=== PATIENT | female | born 1950 | race Caucasian/White ===

== ENCOUNTER 2016-06-05 16:23 | Inpatient (IN) | payer OTHER ==
[~2016-06-05] VITALS: Ht 167.6 cm; Wt 70.6 kg
[2016-06-05] VITALS (9 sets, daily range): BP systolic 150–178; BP diastolic 68–96; PULSE 57–76; TEMP 36.5–36.9; O2SAT 91–95; Ht 167.6 cm; Wt 70.6 kg
[~2016-06-05 16:23] MED LIST: ATOR-24 PO; ISOS30TA51 PO; METO25TA56 PO; NTRSL3 UT; PANT40TA PO; PRED1SUS3 OPR
[2016-06-05] MEDS ORDERED: ASPIRIN 81 MG CHEW PO STA (16:39)
--- NOTE | 2016-06-05 16:46 | EMERGENCY ROOM VISIT NOTE ---
History Report prepared by Gurinder: Christine Trejo Under the Supervision of: Dr. Aiden Alfaro M.D. First contact with patient: 16:32 Chief Complaint: CHEST PAIN Stated Complaint: CHEST PAIN,SOB,CHEST HEAVINESS History of Present Illness The patient is a 65 year old female who presents to the Emergency Room with complaints of intermittent chest pressure beginning 4 hours ago. The patient states that she has had heart attack 4 years ago that felt exactly like this. She reports that it feels like an elephant is sitting on her chest. She complains of shortness of breath and chest heaviness. The patient denies any fever, bloody stool, black stool, recent flu-like symptoms, radiation. She states that nothing makes her pain better or worse and she has not changed or started any medication recently. She notes that she has hypertension and is a smoker but does not take Aspirin. The patient rates her pain as an 8/10 in severity. Source of History: patient, family Onset: 4 hours ago Position: chest Symptom Intensity: 8/10 Quality: pressure Timing: intermittent Modifying Factors (Worsening): other (none) Modifying Factors (Relieving): other (none) Associated Symptoms: + SOB, No fevers Note: he patient denies any fever, bloody stool, black stool, recent flu-like symptoms , radiation. Review of Systems See HPI for pertinent positives & negatives. A total of 10 systems reviewed and were otherwise negative. Past Medical & Surgical Medical Problems: (1) Heart attack (2) Hypertension Old medical records were reviewed. Nurse's notes were reviewed and I agree with. She did have a WI in 2010 which was treated medically without a stent. Family History FH: heart disease Social History Smoking Status: Current Every Day Smoker Drug Use: none Marital Status: Housing Status: lives alone Current/Historical Medications Scheduled Atorvastatin (Lipitor), 40 MG PO HS Isosorbide Mononitrate (Isosorbide Mononitrate ER), 15 MG PO BID Metoprolol Tartrate (Lopressor) (Lopressor), 12.5 MG PO BID Scheduled PRN Nitroglycerin (Nitrostat), 0.3 MG UT PRN PRN for CHEST PAIN Allergies Coded Allergies: No Known Allergies (Unverified , 11/14/15) Physical Exam Vital Signs Date Time Temp Pulse Resp B/P Pulse Ox O2 Delivery O2 Flow Rate FiO2 06/05/16 18:12 60 20 148/85 95 06/05/16 17:20 60 148/85 06/05/16 17:13 60 06/05/16 17:01 63 20 193/111 06/05/16 16:54 61 175/102 06/05/16 16:50 Room Air 06/05/16 16:45 70 17 191/94 Room Air 06/05/16 16:26 36.8 69 18 195/106 95 Room Air Physical Exam General: Non ill-appearing older female complaining of chest pain otherwise in no acute distress. HEENT: Normal cephalic atraumatic. Pupils are equal round and reactive to light. Sclerae anicteric. Extraocular movements are intact. Oropharynx is pink with moist mucous membranes. No swelling of the mouth lips or tongue. Neck: Supple with a midline trachea. No meningeal signs or stiffness, no JVD or bruits. No Stridor. Chest: Clear to auscultation bilaterally. No wheezes or rhonchi. No increased work of breathing. Heart: regular rate and rhythm. Abdomen: Soft nontender, nondistended without rebound guarding or rigidity. Extremities: No cyanosis clubbing or edema. No calf tenderness or assymetry Spine/Back. Non tender to palpation. No CVA tenderness Skin: Good turgor without rashes. Neurologic exam: Cranial nerves two through 12 are intact. Motor and sensation are intact and symmetrical throughout. Medical Decision & Procedures ER Provider Diagnostic Interpretation: X-ray results as stated below per interpretation by me and the radiologist: CHEST ONE VIEW PORTABLE No acute infiltrate, failure, or pneumothorax. FINDINGS: The heart is normal in size. There is mild elevation of the interstitium suggesting mild pulmonary vascular congestion. There is no lobar consolidation. There are no pleural effusions.[ IMPRESSION: Mild elevation of the interstitium consistent likely secondary to mild pulmonary vascular congestion. No evidence of focal pulmonary consolidation Electronically signed by: Martin Resendiz M.D. 06/05/2016 4:53 PM Dictated Date/Time: 06/05/2016 4:53 PM Laboratory Results 06/05/16 16:40 Red Blood Count 4.63, Mean Corpuscular Volume 94.4, Mean Corpuscular Hemoglobin 32.2, Mean Corpuscular Hemoglobin Concent 34.1, Mean Platelet Volume 8.8, Neutrophils (%) (Auto) 52.0, Lymphocytes (%) (Auto) 39.3, Monocytes (%) (Auto) 6.1, Eosinophils (%) (Auto) 1.7, Basophils (%) (Auto) 0.6, Neutrophils # (Auto) 6.59, Lymphocytes # (Auto) 4.98, Monocytes # (Auto) 0.77, Eosinophils # (Auto) 0.21, Basophils # (Auto) 0.08 06/05/16 16:40 Test 06/05/16 16:40 06/05/16 16:47 White Blood Count 12.67 K/uL (4.8-10.8) Red Blood Count 4.63 M/uL (4.2-5.4) Hemoglobin 14.9 g/dL (12.0-16.0) Hematocrit 43.7 % (37-47) Mean Corpuscular Volume 94.4 fL (80-100) Mean Corpuscular Hemoglobin 32.2 pg (25-34) Mean Corpuscular Hemoglobin Concent 34.1 g/dl (32-36) Platelet Count 406 K/uL (130-400) Mean Platelet Volume 8.8 fL (7.4-10.4) Neutrophils (%) (Auto) 52.0 % Lymphocytes (%) (Auto) 39.3 % Monocytes (%) (Auto) 6.1 % Eosinophils (%) (Auto) 1.7 % Basophils (%) (Auto) 0.6 % Neutrophils # (Auto) 6.59 K/uL (1.4-6.5) Lymphocytes # (Auto) 4.98 K/uL (1.2-3.4) Monocytes # (Auto) 0.77 K/uL (0.11-0.59) Eosinophils # (Auto) 0.21 K/uL (0-0.5) Basophils # (Auto) 0.08 K/uL (0-0.2) RDW Standard Deviation 48.0 fL (36.4-46.3) RDW Coefficient of Variation 13.9 % (11.5-14.5) Immature Granulocyte % (Auto) 0.3 % Immature Granulocyte # (Auto) 0.04 K/uL (0.00-0.02) Prothrombin Time 10.1 SECONDS (9.0-12.0) Prothromb Time International Ratio 0.9 (0.9-1.1) Activated Partial Thromboplast Time 26.6 SECONDS (21.0-31.0) Partial Thromboplastin Ratio 1.0 Anion Gap 10.0 mmol/L (3-11) Est Creatinine Clear Calc Drug Dose 47.7 ml/min Estimated GFR () 54.9 Estimated GFR (Non- 47.4 BUN/Creatinine Ratio 13.1 (10-20) Calcium Level 8.8 mg/dl (8.5-10.1) Total Bilirubin 0.2 mg/dl (0.2-1) Direct Bilirubin < 0.1 mg/dl (0-0.2) Aspartate Amino Transf (AST/SGOT) 9 U/L (15-37) Alanine Aminotransferase (ALT/SGPT) 11 U/L (12-78) Alkaline Phosphatase 61 U/L (45-117) Total Protein 7.7 gm/dl (6.4-8.2) Albumin 3.9 gm/dl (3.4-5.0) Lipase 131 U/L (73-393) Bedside Troponin I 0.000 ng/ml (0-0.045) Laboratory studies as stated above per my review. Medications Administered Medications (Trade) Dose Ordered Sig/Tiffany Route Start Time Stop Time Status Last Admin Dose Admin Aspirin (Aspirin Chew) 324 mg NOW STAT PO 06/05/16 16:39 06/05/16 16:42 DC 06/05/16 16:46 324 MG Nitroglycerin (Nitrostat Tab) 0.4 mg Q5M PRN SL 06/05/16 16:45 07/05/16 16:44 06/05/16 16:54 0.4 MG ECG Rate (beats per minute): 64 Rhythm: normal sinus Findings: nonspecific-ST abn, other (questionable ST changes between V1-V2, poor R wave progression) Change: EKG #2: Normal Sinus, 61, poor R wave progression, nonspecific ST and T wave abnormalities laterally, no significant change from EKG 1 EKG #3: Sinus bradycardia, 59, t wave inversions anteriorly and laterally, possible ST elevation anteriorly, compared to earlier EKG the T wave inversions are now present. ED Course 1631: Past medical records reviewed. The patient was evaluated in room C4, and a complete history and physical examination were performed. 163: Aspirin Chew 324mg PO. 1645: Nitroglycerin 0.4mg PRN SL chest pain. 1652: I reevaluated the patient. She is feeling much better after 1 nitro and her pain is down to a 1 or 2. 1715: Nitroglycerin 1 inch EXT. 1727: I spoke to Dr. Irving about the patient's case. He is worried about the dynamic changes and suggests calling a heart alert. 1743: I reevaluated the patient. She is feeling a lot better. 1742: Nitroglycerin/Dextrose 2000mcg route. 1800: I reevaluated the patient. She is being evaluated by Dr. Irving and is pain free. 1807: The patient is on her way to the catheterization lab. 1810: I spoke to Dr. Riddle about the patient's case. He will evaluate the patient for further management. 1823: Upon reevaluation, the patient is hemodynamically stable. I discussed the results and treatment plan with the patient. She verbalized agreement of the treatment plan. The patient will be evaluated for further management. Medical Decision Differential diagnoses include acute coronary syndrome, arrhythmia, CHF, GERD, electrolyte or metabolic imbalance. The patient comes in as described above. She has a cardiac history. She had chest pain starting around noon and she had some symptoms off and on for the last couple days or so as well. She appears in no distress but as it an 8/10 chest pressure. She does not take aspirin or chills given aspirin chewable here. IV access was established, EKG, multiple blood tests was obtained. I did give her nitroglycerin 3 and her pain went to 0/10 and she was resting comfortably with this. We applied nitroglycerin paste. Her initial EKG was concerning for possible ST elevation anteriorly versus J-point elevation. She did have some possible depressions laterally as well concerning for reciprocal changes. I did repeat EKG and anterior segments look better. I did call and talk to Dr. Barnes and he felt that given her symptoms and EKG changes that she call heart alert. I did this in the meantime, I got a third EKG and ST segments looked better but now she has T-wave inversions anteriorly. She is pain- free and asymptomatic with 0-10 pain. I do think she needs to go to the [facility] to rule out an acute coronary syndrome/[place]. Dr. Riddle promptly saw her in the ER and is going to take her emergently to the [facility] for further treatment and evaluation and possible angioplasty. The patient was happy with the plan and was sent emergently to the [facility] Consults Time Called: 1720 Consulting Physician: Dr. Irving - Cardiology [facility] Returned Call: [address] Irving about the patient's case. He is worried about the dynamic changes and suggests calling a heart alert. Additional Consults: Time Called: 1805 Consulted Physician: Dr. Riddle Returned Call: 1810 Additional Comments: I spoke to Dr. Riddle about the patient's case. He will evaluate the patient for further management. Impression Primary Impression: Acute myocardial infarction Additional Impression: Substernal chest pain Scribe Attestation The scribe's documentation has been prepared under my direction and personally reviewed by me in its entirety. I confirm that the note above accurately reflects all work, treatment, procedures, and medical decision making performed by me. Departure Information Dispostion Being Evaluated By Hospitalist Easton Gibson M.D. (PCP) Patient Instructions My [facility] Problem Qualifiers
[2016-06-05] MEDS ORDERED: IMDSR30 PO (16:47)
[2016-06-05] MEDS: NITROGLYCERIN 0.4 MG SL PER TAB CHARGE SL PRN ×2 (16:49→16:54)
--- NOTE | 2016-06-05 16:55 | DIAGNOSTIC IMAGING REPORT ---
CHEST ONE VIEW PORTABLE CLINICAL HISTORY: Atypical chest pain COMPARISON STUDY: 05/05/2011 FINDINGS: The heart is normal in size. There is mild elevation of the interstitium suggesting mild pulmonary vascular congestion. There is no lobar consolidation. There are no pleural effusions.[ IMPRESSION: Mild elevation of the interstitium consistent likely secondary to mild pulmonary vascular congestion. No evidence of focal pulmonary consolidation Electronically signed by: Martin Resendiz M.D. 06/05/2016 4:53 PM Dictated Date/Time: 06/05/2016 4:53 PM
[2016-06-05 17:01] LABS: BASO % 0.6 %; BASO ABS # 0.08 K/uL (0-0.2); COMPLETE YES; EOS % 1.7 %; HEMATOCRIT 43.7 % (37-47); IG% 0.3 %; LYMPH % 39.3 %; LYMPH ABS # 4.98 K/uL (1.2-3.4); MEAN CELL VOLUME 94.4 fL (80-100); MEAN CORPUSCULAR HEMOGLOBIN 32.2 pg (25-34); MEAN CORPUSCULAR HGB CONC 34.1 g/dl (32-36); MEAN PLATELET VOLUME 8.8 fL (7.4-10.4); MONO % 6.1 %; PLATELET COUNT 406 K/uL (130-400); RED BLOOD COUNT 4.63 M/uL (4.2-5.4); WHITE BLOOD COUNT 12.67 K/uL (4.8-10.8)
[2016-06-05 17:14] LABS: INR 0.9 (0.9-1.1); PROTHROMBIN TIME (PATIENT) 10.1 SECONDS (9.0-12.0)
[2016-06-05] MEDS ORDERED: NITROGLYCERIN OINT 2% 1GM PACKET EXT ONE (17:15)
[2016-06-05 17:25] LABS: BLOOD UREA NITROGEN 16 mg/dl (7-18); BUN/CREATININE RATIO 13.1 (10-20); CALCIUM 8.8 mg/dl (8.5-10.1); CARBON DIOXIDE 24 mmol/L (21-32); CHLORIDE 108 mmol/L (98-107); GLUCOSE 121 mg/dl (70-99); SODIUM 142 mmol/L (136-145)
[2016-06-05 17:28] LABS: ALKALINE PHOSPHATASE 61 U/L (45-117); ALT/SGPT 11 U/L (12-78); AST/SGOT 9 U/L (15-37)
[2016-06-05] MEDS ORDERED: NiCARDipine HCL INJ 2.5 MG/ML 10 ML AMP ONE (17:42)
[2016-06-05] MEDS ORDERED: HEPARIN SOD (PORCINE) 1000 UNIT/ML 10 ML VIAL ONE (17:43)
[2016-06-05] MEDS ORDERED: NITROGLYCERIN/D5W 100MCG/ML 20ML SYR ONE (17:43)
[2016-06-05] MEDS ORDERED: MIDAZOLAM HCL 1 MG/ML 2ML VIAL ONE (17:43)
[2016-06-05] MEDS ORDERED: FENTANYL CITRATE INJ 50 MCG/1 ML 2 ML VIAL ONE (17:43)
[2016-06-05] MEDS ORDERED: CLOPIDOGREL BISULFATE 300 MG TAB PO ONE (19:03)
--- NOTE | 2016-06-05 19:25 | Procedure Note ---
Pre-Mod Sedation Assessment General Date of Moderate Sedation: Jun 05, 2016. Vital Signs: Vital Signs Past 12 Hours Date Time Temp Pulse Resp B/P Pulse Ox O2 Delivery O2 Flow Rate FiO2 06/05/16 19:15 62 16 156/85 95 Room Air 06/05/16 18:12 60 20 148/85 95 06/05/16 17:20 60 148/85 06/05/16 17:13 60 06/05/16 17:01 63 20 193/111 06/05/16 16:54 61 175/102 06/05/16 16:50 Room Air 06/05/16 16:45 70 17 191/94 Room Air 06/05/16 16:26 36.8 69 18 195/106 95 Room Air Review Cardiovascular: regular rate, rhythm, no edema Abdomen: normal bowel sounds, non tender, soft Lungs: lungs clear, normal breath sounds, no respiratory distress Airway Class: II Pre-Sedation Airway Assessment Oral Cavity: WNL Able to Visualize Vocal Cords: Yes Short Thick Neck: No Hx of Sleep Apnea: No Smoking Status: Former Smoker Mallampati Classification: Class II ASA Classification: Class II Procedure Planning Contraindications-for Mod Sed: None Yes Notes The planned sedation has been discussed with the patient and consent obtained. I have identified the patient, determined the appropriateness of sedation and have assessed the patient immediately prior to the procedure. All medicine(s) and interventions are by my order.
--- NOTE | 2016-06-05 19:26 | Procedure Note ---
Post-Mod Sedation Assessment General Date of Moderate Sedation Jun 05, 2016. Vital Signs: Vital Signs Past 12 Hours Date Time Temp Pulse Resp B/P Pulse Ox O2 Delivery O2 Flow Rate FiO2 06/05/16 19:15 62 16 156/85 95 Room Air 06/05/16 18:12 60 20 148/85 95 06/05/16 17:20 60 148/85 06/05/16 17:13 60 06/05/16 17:01 63 20 193/111 06/05/16 16:54 61 175/102 06/05/16 16:50 Room Air 06/05/16 16:45 70 17 191/94 Room Air 06/05/16 16:26 36.8 69 18 195/106 95 Room Air Review - Discharge Criteria Vital Signs Stable: Yes Alert/Oriented/Conversant: Yes Returned to Baseline Mental St: Yes Nausea Absent/Minimal: Yes Pain/Discomfort/Absent/Minimal: Yes Normal/Baseline Respirations: Yes Active Bleeding?: No Pt Received D/C Instructions: N/A Prescriptions Given: None Specific Proced. D/C Criteria Distal Pulses Present (Cardiac: Yes Groin site assessed-Card Cath: N/A Voided Prior To Discharge: N/A Discharged Patients Adult Escort/Transportation: N/A
[2016-06-05] MEDS ORDERED: SODIUM CHLORIDE 0.9% 1000ML 1,000 ML IV SCH (19:30)
[2016-06-05] MEDS ORDERED: ONDANSETRON INJ 2 MG/ML 2 ML VIAL IV PRN (19:30)
[2016-06-05] MEDS ORDERED: ACETAMINOPHEN 325 MG TAB PO PRN (19:30)
[2016-06-05] MEDS ORDERED: NITROGLYCERIN 0.4 MG SL PER TAB CHARGE SL PRN (19:30)
[2016-06-05] MEDS ORDERED: IV FLUIDS COMPLETED PRN (19:30)
--- NOTE | 2016-06-05 19:53 | Cardiac Catheterization ---
Procedure Note Procedure Date Jun 05, 2016. Pre-Procedure Diagnosis Acute Coronary Syndrome AUC Score 8 Post-Procedure Diagnosis Severe CAD, Successful PCI, Elevated Intracardiac Pressures Procedure(s) Performed Coronary Angiography, Left Heart Cath, Drug Eluting Stent General Manager Food Dr. Riddle Dye Automation Operator(s) Kirby Estimated Blood Loss 20 Medication(s) Clopidogrel, Fentanyl, Heparin, Nicardipine, Nitroglycerin, Versed, Lidocaine 1% Summary of Findings Indication: Heart Alert/NSTEMI/Dynamic ST changes Access: 6Fr Slender Right Radial Artery Catheters: [place], JL3.5, EBU 3.5 Findings: LM - 20-30% ostial stenosis, calcified LAD - 30-40% ostial stenosis, proximal segment moderately calcified with 99% focal stenosis, distal segment tapers to apex with diffuse mild disease. Moderate caliber 2nd diagonal with only luminal irregularities. 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 Circumflex - Luminal irregularities, ostial 40% stenosis of moderate caliber 2nd obtuse marginal RCA - Dominant, small-moderate caliber vessel, 40-50% early mid segment stenosis , distal PDA, PLBs small and diffusely diseased. LVEDP - 26 Arterial Closure: TR Band PCI: Antithrombotic therapy: Heparin, Clopidogrel Procedure: EBU 3.5 Guide BMW wire passed across lesion and placed into distal LAD Stenosis pre-dilated with 2.5 compliant balloon to high-atmospheres 2.75 x 18 Xience MELISSA placed across stenosis Post-dilated with 2.75 NC balloon Post procedure stent well expanded with no minimal residual stenosis, ANNA 3 flow and no apparent coronary complications. Summary: 1. Severe single vessel coronary artery disease - 99% proximal LAD 2. Mild to moderate residual CAD - 20-30% ostial LM - 40-50% mid RCA - 40% ostial OM2 3. 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 Systemic hypertension with elevated intracardiac filling pressures 5. Successful PCI of proximal LAD with 1 drug-eluting stent (Xience 2.75 x 18) Recommendations: Admit to telemetry Loaded with 600 mg Clopidogrel in laboratory animal care veterinarian Continue DAPT with ASA/Plavix for at least 1 year High-dose statin, blood pressure control and continued ASCVD risk factor modification with Dr. Irving and Dr. Arechiga Cardiac Rehab Hemodynamics Rest Ao: 192/94/133 Final Ao: 147/69/96 LV: 195/28 Recommendations PCI without planned CABG Specimens None Radiation Exposure (mGy) 1043 Contrast (mls) 135 Visipaque Fluids (cc crystalloids) 94 Drains None Anesthesia Moderate Procedural Complication(s) None Disposition PCU ACC Data Cardiac Status Clinical evaluation leading to the procedure CAD Presntation: Non STEMI Anginal Classification: CCS IV Heart Failure: No, NYHA Class: CCS I Cardiogenic Shock w/in 24Hrs: No Cardiac Arrest w/in 24Hrs: No Imaging studies past 6 months: Yes Stress studies past 6 months: Yes Standard Exercise Stress Test: No Stress Echocardiogram: Yes - Negative Stress Testing w/SPECT MPI: No Cardiac CTA: No Coronary Anatomy Dominant: Right Left Main (% Stenosis): Ostial (20-30) LAD (% Stenosis): Ostial (30-40), Proximal (99) Circumflex (% Stenosis): Normal R PDA (% Stenosis): Mid (40-50) Diagnostic Physician's Name: Ernesto Riddle MD Status: Urgent Closure Device Percutaneous Entry Location: Radial Closure Device: Radial Band Recommendations: PCI without planned CABG PCI Indication: PCI for high risk Non-STEMI Lesion Segment Name: Proximal LAD Culprit Artery: Yes Stenosis Prior to Rx (%): 99 Chronic Total Occlusion: No IVUS: No FFR: No Pre-Procedure ANNA Flow: 3 Previously Treated Lesion: No Lesion Complexity: Non-High/Non-C Lesion Length (mm): 12 Thrombus Present: No Bifurcation Lesion: No Guidewire Across Lesion: Yes Guidewire: Stenosis Post-Procedure (%): 0 Post-Procedure ANNA Flow: 3 Device(s) Deployed: Yes Type of Device(s): Xience 2.75 x 18 Intraprocedure Events Significant Dissection: No Perforation: No
--- NOTE | 2016-06-05 20:27 | History and Physical ---
History & Physical Date & Time of Service: Jun 05, 2016 at 20:27 . Chief Complaint: chest pain . Primary Care Physician: Easton Wright M.D. . History of Present Illness Source: patient, clinic records, hospital records 65 YO female followed by Dr. Wright for Family Medicine as well as [facility] Cardiology. History of HI 2011. Note to have anterior wall motion abnormality with preserved overall systolic function. Cath demonstrated moderate coronary disease; no PCI performed. Seen in Cardiology Clinic in January. EKG 01/12/16 showed NSR, biphasic T-waves inferolaterally. Echo 01/23/16 demonstrated apical akinesis, no thrombus, LVEF 50-54%. Lexiscan nuclear stress test on 01/23/16 negative for stress-induced ischemia. About 2 weeks ago patient started experiencing chest pressure and dyspnea on exertion. Today she had more severe chest discomfort and dyspnea while doing laundry. Came to ED because of persistent symptoms EKG demonstrated inferolateral ST depression and resolution of biphasic / inverted T waves. Taken to [facility] where she was found to have 99% proximal LAD lesion as well as less pronounced disease of LM, RCA, OM2. PCI LAD with MELISSA performed via right radial approach. Admitted to Telemetry Unit after the procedure. Doing well. No chest pain or SOB. . Past Medical/Surgical History Chronic Medical Problems: (1) Coronary artery disease Permanent Comment: apical HI 2011 Status: Chronic (2) Dyslipidemia Status: Chronic (3) GERD (gastroesophageal reflux disease) Status: Chronic (4) Hypertension Status: Chronic Surgical Problems: (1) Status post appendectomy Status: Chronic (2) Status post cardiac catheterization Status: Chronic . Family History FATHER Hypertension MOTHER Hypertension Coronary artery disease Diabetes mellitus BROTHER Hypertension Social History Smoking Status: Former Smoker Alcohol Use: occasionally Drug Use: none Marital Status: Immunizations History of Influenza Vaccine: Yes History of Tetanus Vaccine?: Yes History of Pneumococcal: Yes History of Hepatitis B Vaccine: Unknown Multi-Drug Resistant Organisms History of MDRO: No Allergies Coded Allergies: No Known Allergies (Unverified , 11/14/15) Home Medications Scheduled Atorvastatin (Lipitor), 40 MG PO HS Isosorbide Mononitrate (Isosorbide Mononitrate ER), 15 MG PO BID Metoprolol Tartrate (Lopressor) (Lopressor), 12.5 MG PO BID Scheduled PRN Nitroglycerin (Nitrostat), 0.3 MG UT PRN PRN for CHEST PAIN Review of Systems Constitutional: No chills, No fever, No weight loss Eyes: No diplopia, No worsening of vision ENT: No hearing loss, No nasal symptoms, No sore throat Respiratory: + cough (rare), + shortness of breath Cardiovascular: + problem reported (as noted above in HPI) Abdomen: No GI bleeding, No diarrhea, No nausea, No pain, No vomiting Musculoskeletal: + joint pain Genitourinary - Female: No dysuria, No hematuria Endocrine: No excessive thirst, No excessive urination Hematologic / Lymphatic: + abnormal bleeding/bruising (bruises easily) Integumentary: No new/changing skin lesions, No rash Physical Exam Vital Signs Date Time Temp Pulse Resp B/P Pulse Ox O2 Delivery O2 Flow Rate FiO2 06/05/16 19:25 62 16 166/62 95 Room Air 06/05/16 19:15 62 16 156/85 95 Room Air 06/05/16 18:12 60 20 148/85 95 06/05/16 17:20 60 148/85 06/05/16 17:13 60 06/05/16 17:01 63 20 193/111 06/05/16 16:54 61 175/102 06/05/16 16:50 Room Air 06/05/16 16:45 70 17 191/94 Room Air 06/05/16 16:26 36.8 69 18 195/106 95 Room Air General Appearance: WD/WN, no apparent distress, + mild distress Head: normocephalic Eyes: normal inspection, PERRL, EOMI, sclerae normal, + pertinent finding ( conjunctivae pink) ENT: normal ENT inspection, hearing grossly normal, pharynx normal Neck: supple, no adenopathy, thyroid normal, no JVD, no carotid bruits, trachea midline Respiratory/Chest: lungs clear, no respiratory distress, no accessory muscle use Cardiovascular: regular rate, rhythm, no edema, no gallop, no JVD, no murmur, normal peripheral pulses Abdomen/GI: normal bowel sounds, non tender, soft, no organomegaly, no pulsatile mass Extremities/Musculoskelatal: no calf tenderness, normal capillary refill, no pedal edema, + pertinent finding (right radial cath site with compression band applied) Neurologic/Psych: rn intern II-XII nml as tested (PERRL, EOMI, anicteric), alert, normal mood/affect, normal reflexes, oriented x 3 Skin: normal color, warm/dry, no rash Lymphatic: no adenopathy Diagnostics Laboratory Results Results Past 24 Hours Test 06/05/16 16:40 06/05/16 16:47 06/05/16 18:43 06/05/16 19:07 Range/Units White Blood Count 12.67 4.8-10.8 K/uL Red Blood Count 4.63 4.2-5.4 M/uL Hemoglobin 14.9 12.0-16.0 g/dL Hematocrit 43.7 37-47 % Mean Corpuscular Volume 94.4 80-100 fL Mean Corpuscular Hemoglobin 32.2 25-34 pg Mean Corpuscular Hemoglobin Concent 34.1 32-36 g/dl Platelet Count 406 130-400 K/uL Mean Platelet Volume 8.8 7.4-10.4 fL Neutrophils (%) (Auto) 52.0 % Lymphocytes (%) (Auto) 39.3 % Monocytes (%) (Auto) 6.1 % Eosinophils (%) (Auto) 1.7 % Basophils (%) (Auto) 0.6 % Neutrophils # (Auto) 6.59 1.4-6.5 K/uL Lymphocytes # (Auto) 4.98 1.2-3.4 K/uL Monocytes # (Auto) 0.77 0.11-0.59 K/uL Eosinophils # (Auto) 0.21 0-0.5 K/uL Basophils # (Auto) 0.08 0-0.2 K/uL RDW Standard Deviation 48.0 36.4-46.3 fL RDW Coefficient of Variation 13.9 11.5-14.5 % Immature Granulocyte % (Auto) 0.3 % Immature Granulocyte # (Auto) 0.04 0.00-0.02 K/uL Prothrombin Time 10.1 9.0-12.0 SECONDS Prothromb Time International Ratio 0.9 0.9-1.1 Activated Partial Thromboplast Time 26.6 21.0-31.0 SECONDS Partial Thromboplastin Ratio 1.0 Sodium Level 142 136-145 mmol/L Potassium Level 4.0 3.5-5.1 mmol/L Chloride Level 108 98-107 mmol/L Carbon Dioxide Level 24 21-32 mmol/L Anion Gap 10.0 3-11 mmol/L Blood Urea Nitrogen 16 7-18 mg/dl Creatinine 1.20 0.60-1.20 mg/dl Est Creatinine Clear Calc Drug Dose 47.7 ml/min Estimated GFR () 54.9 Estimated GFR (Non- 47.4 BUN/Creatinine Ratio 13.1 10-20 Random Glucose 121 70-99 mg/dl Calcium Level 8.8 8.5-10.1 mg/dl Total Bilirubin 0.2 0.2-1 mg/dl Direct Bilirubin < 0.1 0-0.2 mg/dl Aspartate Amino Transf (AST/SGOT) 9 15-37 U/L Alanine Aminotransferase (ALT/SGPT) 11 12-78 U/L Alkaline Phosphatase 61 45-117 U/L Total Protein 7.7 6.4-8.2 gm/dl Albumin 3.9 3.4-5.0 gm/dl Lipase 131 73-393 U/L Bedside Troponin I 0.000 0-0.045 ng/ml Kaolin Activated Coagulation Time 219 229 94-140 SECONDS Diagnostic Radiology CHEST ONE VIEW PORTABLE FINDINGS: The heart is normal in size. There is mild elevation of the interstitium suggesting mild pulmonary vascular congestion. There is no lobar consolidation. There are no pleural effusions.[ IMPRESSION: Mild elevation of the interstitium consistent likely secondary to mild pulmonary vascular congestion. No evidence of focal pulmonary consolidation Electronically signed by: Martin Resendiz M.D. 06/05/2016 4:53 PM . EKG EKG demonstrated NSR, possible age-indeterminate septal infarct, inferolateral ST depression and resolution of biphasic / inverted T waves. . Impression Assessment and Plan UNSTABLE ANGINA Patient with know ischemic heart disease. Presented to ED with prolonged chest pain associated with inferolateral ST and T -wave changes. Troponin negative. Taken to [facility] and found to have 99% proximal LAD lesion. PCI with MELISSA performed with good results. Aspirin, clopidogrel, metoprolol, lisinopril, atorvastatin ordered. Patient had apparently not been taking her aspirin recently. Importance of compliance with antiplatelet medications discussed. HYPERTENSION Titration of cardiovascular meds per Cardiology. DYSLIPIDEMIA Check lipid profile. High-dose atorvastatin. VTE PROPHYLAXIS Low-moderate risk. SQ enoxaparin. Ambulate. DISPOSITION Observation status Telemetry Unit. Expected discharge to home. Family Medicine follow-up with Dr. Wright. Cardiology follow-up with Dr. Arechiga and KA[facility] Galvan. . VTE Prophylaxis VTE Risk Assessment Done? Y/N: Yes Risk Level: Moderate Given or contraindicated: Enoxaparin (Lovenox)SQ
[2016-06-05] MEDS: METOPROLOL TARTRATE 25 MG TAB PO SCH (20:32)
--- NOTE | 2016-06-05 21:07 | CARDIOLOGY CONSULTATION ---
DATE OF CONSULTATION: 06/05/2016 REASON FOR CONSULTATION: Chest pain, heart alert. CONSULTING PHYSICIAN: Aiden Alfaro MD HISTORY OF PRESENT ILLNESS: Ms. Khan is a very pleasant 65-year-old woman with a history of hypertension, hyperlipidemia and coronary artery disease status post prior ME back in 2011, who presented today with stuttering chest pressures, heaviness for 4 to 5 hours. The patient states the pain initially began while she was sitting, doing laundry. Following that time, the pain would come and go until approximately an hour prior to presentation, when persisted and led to her presentation. With the pain, she reports some mild diaphoresis and shortness of breath. The pain was reminiscent of prior pain that she had with her prior heart attack. She presented to the Emergency Department where she was initially hypertensive with blood pressures to the 190s. She was treated with aspirin and sublingual nitroglycerin and chest pain was resolved. Initial EKG showed subtle ST elevations and serial EKG showed dynamic T-wave inversions across the precordial leads. With stuttering pain and dynamic changes a heart alert was called. At the time of interview, the patient was chest pain free and feeling well. In regards to her prior cardiac history, the patient previously was admitted back in 2011 at which time she presented with chest pressure and had a troponin that peaked at 15. She underwent a cardiac catheterization at that time which showed mild to moderate nonobstructive disease, questionable disease in the long first diagonal. LV-gram and echocardiogram at that time showed apical severe hypokinesis. She was treated for coronary artery disease and in the setting of apical wall motion abnormality was discharged on anticoagulation. Since that time, she has been followed by Dr. Arechiga. Most recently, she has just been on aspirin as well as statin and a beta stan. PAST MEDICAL HISTORY: 1. Coronary artery disease with prior ME as discussed above. 2. Hypertension. 3. Hyperlipidemia. FAMILY HISTORY: Mother of an ME in her 60s. SOCIAL HISTORY: Quit smoking 25 years ago. Denies heavy alcohol use. HOME MEDICATIONS: Include; atorvastatin 40 mg, isosorbide mononitrate 15 mg b.i.d., metoprolol tartrate 12.5 mg p.o. b.i.d. and sublingual nitroglycerin tabs p.r.n. ALLERGIES: No known drug allergies. PHYSICAL EXAMINATION: VITAL SIGNS: Temperature 36.8, blood pressure 148/85, heart rate of 60 and satting 95% on room air. GENERAL: The patient appeared comfortable, in no acute distress. HEENT: Sclerae are anicteric. Oropharynx is clear. Mucous membranes are moist. NECK: Supple with no lymphadenopathy. LUNGS: Clear to auscultation bilaterally. CARDIAC: She had regular rate and rhythm with no murmurs, rubs or gallops. ABDOMEN: Soft, nontender, nondistended with positive bowel sounds. EXTREMITIES: Warm. She had no significant lower extremity edema. She had intact distal pulses including 2+ radial, 2+ femoral and 2+ PT pulses bilaterally. SKIN: Showed no rashes or lesions. NEUROLOGIC: Grossly nonfocal. PSYCHIATRIC: She was alert, oriented and appropriate. LABORATORY DATA: WBC 12.7, hemoglobin 14.9, platelets of 406. INR of 0.9. Sodium 142, potassium 4.0, BUN 16, creatinine 1.2, random glucose of 121. LFTs were within normal limits. Tricl-[id number] troponin was negative. Chest x-ray showed mild pulmonary vascular congestion. No evidence of focal pulmonary consolidation. IMPRESSION AND PLAN: 1. Acute coronary syndrome. 2. Hypertension. 3. Mild pulmonary vascular congestion. Due to patient's stuttering chest pain and dynamic EKG changes, she was taken emergently to the cardiac catheterization lab. There she was found to have a severe 99% proximal LAD lesion. This was treated with one drug-eluting stent with good angiographic result. Post-procedure, the patient was chest pain free. 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 We will continue on dual antiplatelet therapy for at least a year. We will continue on metoprolol and increase it to 25 mg b.i.d., add lisinopril 5 mg and start on atorvastatin 80 mg. [facility] cardiology, Dr. Irving will resume care of patient tomorrow. Thank you for allowing us to participate in the care of this patient.
[2016-06-05] MEDS ORDERED: INFLUENZA ADMINISTRATION CHARGE ONE (21:45)
[2016-06-05] MEDS ORDERED: INFLUENZA VIRUS QUAD VACCINE 0.5 ML SYR IM. ONE (21:45)
[2016-06-06] VITALS (11 sets, daily range): BP systolic 106–170; BP diastolic 53–86; PULSE 56–68; TEMP 36.6–37.4; O2SAT 93–97
[2016-06-06] MEDS ORDERED: ENALAPRILAT IV 0.625 MG in DEXTROSE 5% 25ML 25 ML IV STA (02:40)
[2016-06-06 06:37] LABS: BASO % 0.4 %; BASO ABS # 0.05 K/uL (0-0.2); COMPLETE YES; HEMATOCRIT 39.1 % (37-47); IG% 0.3 %; LYMPH % 32.6 %; LYMPH ABS # 3.83 K/uL (1.2-3.4); MEAN CELL VOLUME 93.3 fL (80-100); MEAN CORPUSCULAR HEMOGLOBIN 31.3 pg (25-34); MEAN CORPUSCULAR HGB CONC 33.5 g/dl (32-36); MEAN PLATELET VOLUME 8.7 fL (7.4-10.4); MONO % 5.2 %; NEUT % 60.5 %; PLATELET COUNT 307 K/uL (130-400); RED BLOOD COUNT 4.19 M/uL (4.2-5.4); WHITE BLOOD COUNT 11.74 K/uL (4.8-10.8)
[2016-06-06 07:02] LABS: BUN/CREATININE RATIO 14.2 (10-20); CALCIUM 8.5 mg/dl (8.5-10.1); CREATININE 0.91 mg/dl (0.60-1.20); MAGNESIUM 2.1 mg/dl (1.8-2.4); POTASSIUM 3.6 mmol/L (3.5-5.1)
[2016-06-06 07:05] LABS: CHOLESTEROL/HDL RATIO 8.6
[2016-06-06] MEDS: METOPROLOL TARTRATE 25 MG TAB PO SCH ×2 (07:56→20:34)
[2016-06-06] MEDS: ATORVASTATIN 40 MG TAB PO SCH ×2 (07:56→08:00)
[2016-06-06] MEDS: CLOPIDOGREL BISULFATE 75 MG TAB PO SCH (07:56)
[2016-06-06] MEDS: ASPIRIN 81 MG ECTAB PO SCH (07:56)
[2016-06-06] MEDS: ENOXAPARIN 40 MG/0.4 ML SYR SQ SCH (07:59)
[2016-06-06] MEDS ORDERED: LISINOPRIL 5 MG TAB PO SCH (09:00)
[2016-06-06] MEDS ORDERED: LISINOPRIL 5 MG TAB PO ONE (09:45)
--- NOTE | 2016-06-06 11:50 | CARDIOLOGY CONSULTATION ---
DATE OF CONSULTATION: 06/06/2016 REFERRING PHYSICIAN: Dr. Slava Cain. REASON FOR CONSULTATION: Anterior ST elevation PA status post drug-eluting stent implantation. CHIEF COMPLAINT ON ADMISSION: Chest pain, "an elephant is sitting on my chest." HISTORY OF PRESENT ILLNESS: Ms. Khan is a 65-year-old female presented to the Emergency Department with 4 hours of waxing and waning chest pain and pressure. The patient states she felt like an elephant was sitting on her chest. No radiation of the discomfort to her arm or jaw. There was associated shortness of breath. She was markedly hypertensive. I was contacted by the Emergency Department physician on 06/05/2016 to review ECGs. Based on review of her ECGs in comparison to her baseline there was evidence of anterior ST elevation with reciprocal changes. I recommended a heart alert be called at that time. The patient was emergently taken to the cardiac catheterization lab. Coronary angiography revealed critical proximal left anterior descending artery stenosis. A drug-eluting stent was implanted without complication. Overnight the patient has done well. No recurrent chest discomfort. This morning she is feeling well with improved blood pressure readings. She received 1 dose of intravenous enalapril to improve blood pressure control. Reports discomfort near her radial access site as well as near her IV sites in her left arm. Denies shortness of breath, palpitations, lightheadedness, dizziness, syncope or near syncope. Prior to admission, the patient admitted to noncompliance with aspirin. Complex history listed below. Offers no complaints at this time. Would like to be discharged as soon as possible. REVIEW OF SYSTEMS: The pertinent positive noted above, a comprehensive 10-system review is otherwise negative. PAST MEDICAL HISTORY: 1. Apical myocardial infarction in 2011 with no evidence of obstructive CAD per cardiac catheterization. 2. Hypertension. 3. GERD. 4. Macular degeneration. 5. Dyslipidemia. PAST SURGICAL HISTORY: 1. Cardiac catheterization revealing nonobstructive coronary disease. 2. Cataract surgery. FAMILY HISTORY: Mother of a myocardial infarction in her 60s. SOCIAL HISTORY: Former tobacco abuse. ALLERGIES: No known drug allergies. OUTPATIENT MEDICATIONS: 1. Atorvastatin 40 mg daily. 2. Imdur 15 mg twice daily. 3. Metoprolol tartrate 12.5 mg twice daily. 4. Sublingual nitroglycerin as needed. 2-D echo pending. Repeat ECG pending. LABORATORY DATA: White blood cell count 11.74, hemoglobin is 13.1, platelet count is 307. Sodium 138, potassium 3.6, chloride 107, CO2 is 25, BUN is 13, creatinine is 0.91. Triglycerides 399. Total cholesterol is 257. Calculated LDL is 147. Her HDL is 30. Point of care troponin was undetectable, repeat troponin is pending at this time. Telemetry demonstrates sinus rhythm, no dysrhythmia. PHYSICAL EXAMINATION: VITAL SIGNS: Temperature 37.1 degrees centigrade, pulse 64 beats per minute and regular, respiratory rate 16 breaths per minute, blood pressure 143/66 SAO2 is 96% on room air. GENERAL: NAD, awake, alert and oriented x3. HEENT: Mucous membranes are moist. No scleral icterus. Conjunctivae pink. NECK: Supple. There is no JVD, no HJR, no carotid bruit. HEART: Regular with a normal S1 and S2. There is no murmur, rub, or gallop. LUNGS: Clear without rales, rhonchi or wheeze. ABDOMEN: Soft, nontender. There is no rebound or guarding. Normal bowel sounds. EXTREMITIES: Warm and dry. There is no clubbing, cyanosis or edema. NEUROLOGIC: Demonstrates no focal deficit. FINAL IMPRESSION: 1. Anterior STEMI status post drug-eluting stent implantation to the proximal right coronary artery. 2. Residual coronary artery disease with 20%-30% ostial left main, 30%-40% ostial left anterior descending, 40% ostial obtuse marginal stenosis, 40%-50% early mid right coronary artery stenosis with distal posterior descending artery and posterolateral branch vessel diffuse mild disease. 3. Elevated left ventricular intracardiac filling pressures. 4. Uncontrolled hypertension. 5. Former tobacco abuse. 6. History of prior apical myocardial infarction. 7. Dyslipidemia. PLAN AND RECOMMENDATIONS: I had a long discussion with the patient regarding her anterior ST elevation PA. Reviewed the indication for dual antiplatelet therapy for minimum of 1 year [id number] stent implantation. The patient voiced understanding. I will increase lisinopril to 10 mg daily in addition to her beta-stan. Consider discontinuation of nitro paste as blood pressure improves. Repeat ECG is pending. Her resting 2D transthoracic echo is also pending at this time. I will review those studies when available. I will continue to follow during hospitalization. JOSSELYN
[2016-06-06] MEDS ORDERED: NURSING VERBAL MED ORDER ONE ×2 (13:30→17:00)
[2016-06-06] MEDS ORDERED: PERFLUTREN LIPID MICROSPHERE (DEFINITY) IV ONE (14:23)
--- NOTE | 2016-06-06 15:17 | ECHOCARDIOGRAM REPORT ---
*NOTICE TO RECEIVING [employer] This information is strictly Confidential and protected under [place] law. [place] law prohibits you from making any further disclosure of this information unless further disclosure is expressly permitted by the written consent of the person to whom it pertains or is authorized by law. A general authorization for the release of medical or other information is not sufficient for this purpose. Hospital accepts no responsibility if the information is made available to any other person, INCLUDING THE PATIENT. Interpretation Summary * Name: MOON STERLING Study Date: 06/06/2016 07:46 AM BP: 139/81 mmHg * Patient Location: .2E\S\E211\S\1 HR: 59 * : 1950 (M/d/yyyy) Gender: Female Height: 66 in * Age: 65 yrs Ethnicity: CA Weight: 160 lb * Ordering Physician: Ernesto Riddle * Performed By: Stacie Pastrana RDCS * * Reason For Study: AMI * BSA: 1.8 m2 * The study was technically adequate. * Compared to prior study, changes are noted. * -- Conclusions -- * Ejection Fraction = 55-60%. * The apical cap is thinned and akinetic. * The apical anteroseptum and apical anterior wall is akinetic. * The mid anteroseptum is hypokinetic. * The mid anterior wall is hypokinetic. * The apical lateral wall is hypokinetic. * Diastolic dysfunction, Grade II (pseudonormalization pattern). * No significant valvular disease. Procedure Details * A complete two-dimensional transthoracic echocardiogram was performed (2D, M-mode, Doppler and color flow Doppler). * A contrast injection of Definity was performed to improve assessment for apical thrombus. * Contrast was injected into an intravenous site in the left arm. * One vial of Definity ultrasound contrast was diluted in normal saline to a total volume of 10 ml. A total of '4' ml of solution was administered during imaging. * Lot # [id number] of Definity utilized for procedure. * Expiration date APR 28. * The attending nurse who injected the contrast agent was Jane Palumbo RN. Left Ventricle * The left ventricle is normal in size. * There is no thrombus. * There is normal left ventricular wall thickness. * Left ventricular systolic function is normal. * Ejection Fraction = 55-60%. * The apical cap is thinned and akinetic. The apical anteroseptum and apical anterior wall is akinetic. The mid anteroseptum is hypokinetic. The mid anterior wall is hypokinetic. The apical lateral wall is hypokinetic. Right Ventricle * The right ventricular cavity size is normal (basal dimension <4.2 cm in right ventricular apical 4-chamber view). * The right ventricular systolic function is normal as assessed by tricuspid annular plane systolic excursion (TAPSE) (normal >1.5 cm). Atria * The left atrial size is normal. * Right atrium not well visualized. * No ASD detected; PFO is not assessed. Mitral Valve * There is mild mitral annular calcification. * There is no mitral valve stenosis. * Significant mitral regurgitation is absent. Tricuspid Valve * The tricuspid valve anatomy is normal. * There is no tricuspid stenosis. * Significant tricuspid regurgitation is absent. Aortic Valve * The aortic valve is trileaflet. * No hemodynamically significant valvular aortic stenosis. * There is no significant aortic regurgitation. Pulmonic Valve * The pulmonary valve is not well seen, but the Doppler examination is normal without significant regurgitation or stenosis. Great Vessels * The aortic root is normal size. * Normal inferior vena cava size and collapsability with sniff indicates a normal right atrial pressure of 3 mmHg Left Ventricular Diastolic Function * Diastolic dysfunction, Grade II (pseudonormalization pattern). MMode 2D Measurements and Calculations IVSd 0.87 cm LVIDd 4.5 cm LVIDs 3.1 cm LVPWd 0.97 cm IVS/LVPW 0.89 FS 30.8 % EDV(Teich) 94.0 ml ESV(Teich) 39.0 ml EF(Teich) 58.5 % EDV(cubed) 93.0 ml ESV(cubed) 30.9 ml EF(cubed) 66.8 % LV mass(C)d 138.8 grams LV mass(C)dI 76.3 grams/m\S\2 SV(Teich) 54.9 ml SI(Teich) 30.2 ml/m\S\2 SV(cubed) 62.2 ml SI(cubed) 34.2 ml/m\S\2 Ao root diam 3.2 cm Ao root area 8.0 cm\S\2 ACS 1.7 cm LA dimension 2.0 cm asc Aorta Diam 2.9 cm LA/Ao 0.64 LVOT diam 2.0 cm LVOT area 3.0 cm\S\2 LVAd ap4 21.1 cm\S\2 LVLd ap4 6.5 cm EDV(MOD-sp4) 56.6 ml EDV(sp4-el) 57.9 ml LVAs ap4 13.2 cm\S\2 LVLs ap4 6.0 cm ESV(MOD-sp4) 23.9 ml ESV(sp4-el) 24.7 ml EF(MOD-sp4) 57.8 % EF(sp4-el) 57.3 % LVAd ap2 26.0 cm\S\2 LVLd ap2 7.9 cm EDV(MOD-sp2) 73.7 ml EDV(sp2-el) 72.1 ml LVAs ap2 17.0 cm\S\2 LVLs ap2 7.3 cm ESV(MOD-sp2) 33.0 ml ESV(sp2-el) 33.5 ml EF(MOD-sp2) 55.2 % EF(sp2-el) 53.6 % LVLd %diff 17.6 % EDV(MOD-bp) 70.9 ml LVLs %diff 17.9 % ESV(MOD-bp) 30.6 ml EF(MOD-bp) 56.9 % SV(MOD-sp4) 32.7 ml SI(MOD-sp4) 18.0 ml/m\S\2 SV(MOD-sp2) 40.7 ml SI(MOD-sp2) 22.4 ml/m\S\2 SV(MOD-bp) 40.3 ml SI(MOD-bp) 22.2 ml/m\S\2 SV(sp4-el) 33.2 ml SI(sp4-el) 18.2 ml/m\S\2 SV(sp2-el) 38.6 ml SI(sp2-el) 21.2 ml/m\S\2 Doppler Measurements and Calculations MV E max eulogio 89.5 cm/sec MV A max eulogio 77.1 cm/sec MV E/A 1.2 MV dec time 0.23 sec Ao V2 max 96.3 cm/sec Ao max PG 3.7 mmHg Ao max PG (full) 0.48 mmHg BRET(V,A) 2.8 cm\S\2 BRET(V,D) 2.8 cm\S\2 LV V1 max PG 3.2 mmHg LV V1 max 89.9 cm/sec PA V2 max 83.7 cm/sec PA max PG 2.8 mmHg PA acc slope 436.8 cm/sec\S\2 PA acc time 0.17 sec PA pr(Accel) 4.0 mmHg
--- NOTE | 2016-06-06 17:18 | Progress Note ---
Medicine Progress Note Date & Time of Visit: Jun 06, 2016 at 17:12. Subjective Patient seen and examined. Feels much better today. Denies chest heaviness. Breathing has returned to baseline. Objective Last 8 Hrs Date Time Temp Pulse Resp B/P Pulse Ox O2 Delivery O2 Flow Rate FiO2 06/06/16 15:07 37.0 68 19 106/53 95 Room Air 06/06/16 12:00 Room Air 06/06/16 11:45 37.4 60 16 150/75 95 Room Air Physical Exam: General-awake; alert; NAD Eyes-EOMI; no scleral icterus Neck-no stridor; trachea midline Lungs-CTA bilaterally; no wheezes/crackles Heart-RRR; no m/r/g Abdomen-soft; NTND; nBS Extremities-no c/c/e; no deformity Neuro-no focal deficits Laboratory Results: Last 24 Hours Test 06/05/16 18:43 06/05/16 19:07 06/06/16 05:53 06/06/16 10:03 Kaolin Activated Coagulation Time 219 SECONDS 229 SECONDS White Blood Count 11.74 K/uL Red Blood Count 4.19 M/uL Hemoglobin 13.1 g/dL Hematocrit 39.1 % Mean Corpuscular Volume 93.3 fL Mean Corpuscular Hemoglobin 31.3 pg Mean Corpuscular Hemoglobin Concent 33.5 g/dl Platelet Count 307 K/uL Mean Platelet Volume 8.7 fL Neutrophils (%) (Auto) 60.5 % Lymphocytes (%) (Auto) 32.6 % Monocytes (%) (Auto) 5.2 % Eosinophils (%) (Auto) 1.0 % Basophils (%) (Auto) 0.4 % Neutrophils # (Auto) 7.10 K/uL Lymphocytes # (Auto) 3.83 K/uL Monocytes # (Auto) 0.61 K/uL Eosinophils # (Auto) 0.12 K/uL Basophils # (Auto) 0.05 K/uL RDW Standard Deviation 47.8 fL RDW Coefficient of Variation 14.1 % Immature Granulocyte % (Auto) 0.3 % Immature Granulocyte # (Auto) 0.03 K/uL Sodium Level 138 mmol/L Potassium Level 3.6 mmol/L Chloride Level 107 mmol/L Carbon Dioxide Level 25 mmol/L Anion Gap 6.0 mmol/L Blood Urea Nitrogen 13 mg/dl Creatinine 0.91 mg/dl Est Creatinine Clear Calc Drug Dose 62.9 ml/min Estimated GFR () 76.7 Estimated GFR (Non- 66.2 BUN/Creatinine Ratio 14.2 Random Glucose 83 mg/dl Calcium Level 8.5 mg/dl Magnesium Level 2.1 mg/dl Triglycerides Level 399 mg/dl Cholesterol Level 257 mg/dl HDL Cholesterol 30 mg/dl LDL Cholesterol, Calculated 147 mg/dl VLDL Cholesterol, Calculated 80 mg/dl Cholesterol/HDL Ratio 8.6 Troponin I 16.100 ng/ml Assessment & Plan UNSTABLE ANGINA Patient with know ischemic heart disease. Presented to ED with prolonged chest pain associated with inferolateral ST and T -wave changes. Troponin negative. Taken to [facility] and found to have 99% proximal LAD lesion. PCI with MELISSA performed with good results. Aspirin, clopidogrel, metoprolol, lisinopril, atorvastatin ordered. Patient had apparently not been taking her aspirin recently. Importance of compliance with antiplatelet medications discussed. HYPERTENSION Titration of cardiovascular meds per Cardiology. DYSLIPIDEMIA Elevated lipids. High-dose atorvastatin. VTE PROPHYLAXIS Low-moderate risk. SQ enoxaparin. Ambulate. DISPOSITION Expected discharge to home. Family Medicine follow-up with Dr. Wright. Cardiology follow-up with Dr. Arechiga and KAUR Galvan. Consultants: Cardiology Procedures: [facility] 1. Severe single vessel coronary artery disease - 99% proximal LAD 2. Mild to moderate residual CAD - 20-30% ostial LM - 40-50% mid RCA - 40% ostial OM2 3. 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 Systemic hypertension with elevated intracardiac filling pressures 5. Successful PCI of proximal LAD with 1 drug-eluting stent (Xience 2.75 x 18) TTE * Ejection Fraction = 55-60%. * The apical cap is thinned and akinetic. * The apical anteroseptum and apical anterior wall is akinetic. * The mid anteroseptum is hypokinetic. * The mid anterior wall is hypokinetic. * The apical lateral wall is hypokinetic. * Diastolic dysfunction, Grade II (pseudonormalization pattern). * No significant valvular disease. Current Inpatient Medications: Current Inpatient Medications Medications (Trade) Dose Ordered Sig/Tiffany Route Start Time Stop Time Status Last Admin Dose Admin Miscellaneous (Iv Fluids Completed) 1 ea PRN PRN N/A 2/25/17 19:30 06/05/17 19:29 Ondansetron HCl (Zofran Inj) 4 mg Q6H PRN IV 06/05/16 19:30 07/05/16 19:29 Aspirin (Ecotrin Tab) 81 mg QAM PO 06/06/16 09:00 07/06/16 08:59 06/06/16 07:56 81 MG Clopidogrel Bisulfate (plAVix TAB) 75 mg QAM PO 06/06/16 09:00 07/06/16 08:59 06/06/16 07:56 75 MG Metoprolol Tartrate (Lopressor Tab) 25 mg Q12 PO 06/05/16 21:00 07/05/16 20:59 06/06/16 07:56 25 MG Acetaminophen (Tylenol Tab) 650 mg Q4H PRN PO 06/05/16 19:30 07/05/16 19:29 Nitroglycerin (Nitrostat Tab) 0.4 mg PRN PRN SL 06/05/16 19:30 07/05/16 19:29 Enoxaparin Sodium (Lovenox Inj) 40 mg QAM SQ 06/06/16 09:00 07/06/16 08:59 06/06/16 07:59 40 MG Lisinopril (Zestril Tab) 10 mg QAM PO 06/07/16 09:00 07/07/16 08:59 Atorvastatin Calcium (Lipitor Tab) 80 mg HS PO 06/06/16 21:00 07/06/16 20:59
[2016-06-06] MEDS ORDERED: ATORVASTATIN 40 MG TAB PO SCH (21:00)
[2016-06-07 03:51] VITALS: BP 169/76; PULSE 62; TEMP 36.9; O2SAT 94
[2016-06-07 06:00] LABS: MEAN CELL VOLUME 94.3 fL (80-100); MEAN CORPUSCULAR HEMOGLOBIN 31.5 pg (25-34); MEAN CORPUSCULAR HGB CONC 33.4 g/dl (32-36); MEAN PLATELET VOLUME 8.8 fL (7.4-10.4); PLATELET COUNT 279 K/uL (130-400); RED BLOOD COUNT 4.35 M/uL (4.2-5.4)
[2016-06-07 06:37] LABS: BUN/CREATININE RATIO 14.2 (10-20); CALCIUM 8.8 mg/dl (8.5-10.1); CREATININE 0.91 mg/dl (0.60-1.20); POTASSIUM 3.9 mmol/L (3.5-5.1)
[2016-06-07 06:58] LABS: ESTIMATED AVERAGE GLUCOSE 128 mg/dl; HA1C FLAG Normal (Normal)
[2016-06-07] MEDS: METOPROLOL TARTRATE 25 MG TAB PO SCH (07:22)
[2016-06-07] MEDS: CLOPIDOGREL BISULFATE 75 MG TAB PO SCH (07:22)
[2016-06-07] MEDS: ASPIRIN 81 MG ECTAB PO SCH (07:22)
[2016-06-07] MEDS: ENOXAPARIN 40 MG/0.4 ML SYR SQ SCH (07:23)
[2016-06-07 08:09] VITALS: BP 126/69; PULSE 61; TEMP 36.7; O2SAT 96
[2016-06-07] MEDS ORDERED: LISINOPRIL 10 MG TAB PO SCH ×2 (09:00→15:45)
[2016-06-07 11:40] VITALS: BP 114/64; PULSE 64; TEMP 36.6; O2SAT 95
[2016-06-07] MEDS ORDERED: LSN10 PO (15:41)
[2016-06-07] MEDS ORDERED: LPR25 PO (15:41)
[2016-06-07] MEDS ORDERED: ASPEC81 PO (15:41)
[2016-06-07] MEDS ORDERED: ATOR-24 PO (15:41)
[2016-06-07] MEDS ORDERED: PLV75 PO (15:41)
--- NOTE | 2016-06-07 15:44 | Discharge Instructions ---
Discharge Instructions Admission Reason for Admission: Chest Pain/Pci Discharge Discharge Diagnosis / Problem: Chest pain. Heart catheterization. Stent placement. Discharge Goals Goal(s): Therapeutic intervention Activity Recommendations Activity Limitations: resume your previous activity . Instructions / Follow-Up Instructions / Follow-Up Please follow up with Family Medicine Dr. Wright on June 14 at 3pm. Please follow up with Cardiology Paula Galvan on June 16 at 10:15am. Current Hospital Diet Patient's current hospital diet: AHA Diet (Heart Healthy) Discharge Diet Recommended Diet: AHA Diet (Heart Healthy) Pending Studies Studies pending at discharge: no Laboratory Results Hemoglobin A1c Test 06/06/16 05:53 Range/Units Estimated Average Glucose 128 mg/dl Hemoglobin A1c 6.1 H 4.5-5.6 % Lipid Panel Test 06/06/16 05:53 Range/Units Triglycerides Level 399 H 0-150 mg/dl Cholesterol Level 257 H 0-200 mg/dl HDL Cholesterol 30 mg/dl Cholesterol/HDL Ratio 8.6 LDL Cholesterol, Calculated 147 mg/dl Medical Emergencies . Who to Call and When: Medical Emergencies: If at any time you feel your situation is an emergency, please call 911 immediately. . Non-Emergent Contact Non-Emergency issues call your: Primary Care Provider, Manager Programming . . "Provider Documentation" section prepared by Surekha De La Fuente. VTE Core Measure Inpt VTE Proph given/why not?: Enoxaparin (Lovenox)SQ
[2016-06-07] MEDS ORDERED: CLOPIDOGREL BISULFATE 75 MG TAB PO SCH (15:45)
[2016-06-07] MEDS ORDERED: ASPIRIN 81 MG ECTAB PO SCH (15:45)
[2016-06-07] MEDS ORDERED: METOPROLOL TARTRATE 25 MG TAB PO SCH (15:45)
[2016-06-07] MEDS ORDERED: ATORVASTATIN 40 MG TAB PO SCH (15:45)
[2016-06-07 15:51] VITALS: BP 114/64; PULSE 64; TEMP 36.6; O2SAT 95
--- NOTE | 2016-06-07 21:17 | Discharge Summary ---
Discharge Summary Date of Service Jun 07, 2016. Discharge Summary Admission Date: Jun 07, 2016 at 12:06 Discharge Date: Jun 07, 2016 Discharge Disposition: Home Principal Diagnosis: CAD s/p PCI to LAD Procedures: [facility] 1. Severe single vessel coronary artery disease - 99% proximal LAD 2. Mild to moderate residual CAD - 20-30% ostial LM - 40-50% mid RCA - 40% ostial OM2 3. 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 Systemic hypertension with elevated intracardiac filling pressures 5. Successful PCI of proximal LAD with 1 drug-eluting stent (Xience 2.75 x 18) TTE * Ejection Fraction = 55-60%. * The apical cap is thinned and akinetic. * The apical anteroseptum and apical anterior wall is akinetic. * The mid anteroseptum is hypokinetic. * The mid anterior wall is hypokinetic. * The apical lateral wall is hypokinetic. * Diastolic dysfunction, Grade II (pseudonormalization pattern). * No significant valvular disease. Consultations: Cardiology Medication Reconciliation New Medications: Aspirin (Aspirin EC Low Dose) 81 Mg Ectab 81 MG PO QAM for 30 Days, #30 TAB Clopidogrel Bisulfate (Clopidogrel) 75 Mg Tab 75 MG PO QAM for 30 Days, #30 TAB Lisinopril (Zestril) 10 Mg Tab 10 MG PO QAM for 30 Days, #30 TAB Metoprolol Tartrate (Lopressor) 25 Mg Tab 25 MG PO Q12 for 30 Days, #60 TAB Changed Medications: Atorvastatin (Lipitor) 40 Mg Tab 80 MG PO HS for 30 Days, #60 TAB (Changed from: 40 MG) Continued Medications: Nitroglycerin (Nitrostat) 0.3 Mg Tab 0.3 MG UT PRN PRN for CHEST PAIN, BTL Discontinued Medications: Isosorbide Mononitrate (Isosorbide Mononitrate ER) 30 Mg Tabcr 15 MG PO BID Metoprolol Tartrate (Lopressor) (Lopressor) 25 Mg Tab 12.5 MG PO BID, TAB Admission Information HPI (per Admitting provider): 65 YO female followed by Dr. Wright for Family Medicine as well as [facility] Cardiology. History of [place] 2011. Note to have anterior wall motion abnormality with preserved overall systolic function. Cath demonstrated moderate coronary disease; no PCI performed. Seen in Cardiology Clinic in January. EKG 01/12/16 showed NSR, biphasic T-waves inferolaterally. Echo 01/23/16 demonstrated apical akinesis, no thrombus, LVEF 50-54%. Lexiscan nuclear stress test on 01/23/16 negative for stress-induced ischemia. About 2 weeks ago patient started experiencing chest pressure and dyspnea on exertion. Today she had more severe chest discomfort and dyspnea while doing laundry. Came to ED because of persistent symptoms EKG demonstrated inferolateral ST depression and resolution of biphasic / inverted T waves. Taken to [facility] where she was found to have 99% proximal LAD lesion as well as less pronounced disease of LM, RCA, OM2. PCI LAD with MELISSA performed via right radial approach. Admitted to Telemetry Unit after the procedure. Doing well. No chest pain or SOB. . Physical Exam (per Admitting): General Appearance: WD/WN, no apparent distress, + mild distress Head: normocephalic Eyes: normal inspection, PERRL, EOMI, sclerae normal, + pertinent finding ( conjunctivae pink) ENT: normal ENT inspection, hearing grossly normal, pharynx normal Neck: supple, no adenopathy, thyroid normal, no JVD, no carotid bruits, trachea midline Respiratory/Chest: lungs clear, no respiratory distress, no accessory muscle use Cardiovascular: regular rate, rhythm, no edema, no gallop, no JVD, no murmur , normal peripheral pulses Abdomen/GI: normal bowel sounds, non tender, soft, no organomegaly, no pulsatile mass Extremities/Musculoskelatal: no calf tenderness, normal capillary refill, no pedal edema, + pertinent finding (right radial cath site with compression band applied) Neurologic/Psych: 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 EKG was notable for ST and T wave changes. Troponin was negative. Cardiology was consulted. Patient had LHC done with MELISSA placed in LAD. Patient was started on aspirin (not taking at home), Plavix, lisinopril. Metoprolol and atorvastatin doses were increased. Patient noted complete resolution of chest heaviness. Patient deemed stable for discharge with Family medicine and Cardiology follow up. PE on discharge: General- awake; alert; NAD Eyes- EOMI; no scleral icterus Neck- no stridor; trachea midline Lungs- CTA bilaterally; no wheezes/crackles Heart- RRR; no m/r/g Abdomen- soft; NTND; nBS Back- no gross abnormalities Extremities- no c/c/e; no deformity Neuro- no focal deficits Skin- no appreciable rash; +bruises . Total time spent on discharge = This includes examination of the patient, discharge planning, medication reconciliation, and communication with other providers. Discharge Instructions Discharge Instructions Admission Reason for Admission: Chest Pain/Pci Discharge Discharge Diagnosis / Problem: Chest pain. Heart catheterization. Stent placement. Discharge Goals Goal(s): Therapeutic intervention Activity Recommendations Activity Limitations: resume your previous activity . Instructions / Follow-Up Instructions / Follow-Up Please follow up with Family Medicine Dr. Wright on June 14 at 3pm. Please follow up with Cardiology Paula Galvan on June 16 at 10:15am. Current Hospital Diet Patient's current hospital diet: AHA Diet (Heart Healthy) Discharge Diet Recommended Diet: AHA Diet (Heart Healthy) Pending Studies Studies pending at discharge: no Laboratory Results Hemoglobin A1c Test 06/06/16 05:53 Range/Units Estimated Average Glucose 128 mg/dl Hemoglobin A1c 6.1 H 4.5-5.6 % Lipid Panel Test 06/06/16 05:53 Range/Units Triglycerides Level 399 H 0-150 mg/dl Cholesterol Level 257 H 0-200 mg/dl HDL Cholesterol 30 mg/dl Cholesterol/HDL Ratio 8.6 LDL Cholesterol, Calculated 147 mg/dl Medical Emergencies . Who to Call and When: Medical Emergencies: If at any time you feel your situation is an emergency, please call 911 immediately. . Non-Emergent Contact Non-Emergency issues call your: Primary Care Provider, Hand Counter . . "Provider Documentation" section prepared by Surekha De La Fuente. VTE Core Measure Inpt VTE Proph given/why not?: Enoxaparin (Lovenox)SQ Additional Copies To Easton Wright M.D. [place], Paula Mcfarland PA-C
== END 2016-06-07 16:31 | disposition home or self-care (01) | DRG 247 ==
LOC: C.EDB 16:24 → INTOOBSV 18:48 → C.2E 18:48 → OBSVTOIN 06-07 12:06
PROVIDERS: ADMIT Internal Medicine Interventional Cardiology; ATTEND Internal Medicine
PROC: 027034Z Dilation of Coronary Artery, One Artery with Drug-eluting Intraluminal Device, Percutaneous Approach (ICD-10-PCS; principal; 2016-06-05 17:48)
PROC: 4A023N7 Measurement of Cardiac Sampling and Pressure, Left Heart, Percutaneous Approach (ICD-10-PCS; principal; 2016-06-05 17:48)
PROC: B211YZZ Fluoroscopy of Multiple Coronary Arteries using Other Contrast (ICD-10-PCS; principal; 2016-06-05 17:48)
DX: I21.09 ST elevation (STEMI) myocardial infarction involving other coronary artery of anterior wall (principal); I25.110 Atherosclerotic heart disease of native coronary artery with unstable angina pectoris; I10 Essential (primary) hypertension; E78.5 Hyperlipidemia, unspecified; Z91.14 Patient's other noncompliance with medication regimen; I25.2 Old myocardial infarction; Z87.891 Personal history of nicotine dependence; Z82.49 Family history of ischemic heart disease and other diseases of the circulatory system; Z83.3 Family history of diabetes mellitus